=== PATIENT | male | born 1950 | race Two or more races ===

== ENCOUNTER 2020-05-02 02:53 | Inpatient (IN) | payer MEDICARE, OTHER ==
[2020-05-02 04:36] LABS: BASO % 0.2 % (0-2.0); HEMOGLOBIN 14.1 GM/dL (11.7-16.9); LYMPH % 14.4 % (8-40); MCH 29.9 pg (25.7-33.7); MCHC 33.5 g/dl (32.0-35.9); MEAN CELL VOLUME 89.4 fl (80-96); MEAN PLT VOLUME 10.4 fl (7.5-11.1); MONO % 4.3 % (3.8-10.2); NEUT % 81.1 % (42.8-82.8); PLATELET COUNT 117 K/MM3 (134-434); RDW 13.7 % (11.9-15.9); WHITE BLOOD COUNT 6.1 K/mm3 (4.0-10.0)
[2020-05-02] MEDS ORDERED: DEXAMETHASONE SOD PHOSPHATE 4 MG/1 ML VIAL IVPUSH ONE (04:51)
[2020-05-02 04:52] LABS: CHLORIDE 102 mmol/L (98-107); SODIUM 140 mmol/L (136-145)
[2020-05-02 04:54] LABS: CALCIUM 8.2 mg/dL (8.5-10.1); GLUCOSE,RANDOM 109 mg/dL (74-106)
[2020-05-02] MEDS ORDERED: DEXAMETHASONE SOD PHOSPHATE 10 MG/1 ML VIAL ONE (04:54)
[2020-05-02 04:55] LABS: ALBUMIN 3.1 g/dl (3.4-5.0); ANION GAP 8 MMOL/L (8-16); BLOOD UREA NITROGEN 15.1 mg/dL (7-18); CO2 30 mmol/L (21-32)
[2020-05-02 04:56] LABS: INR 1.33 (0.83-1.09)
[2020-05-02 04:57] LABS: BILIRUBIN,DIRECT 0.2 mg/dL (0.0-0.2)
[2020-05-02 04:59] LABS: ACTIVATED PTT 30.1 SECONDS (25.2-36.5); BILIRUBIN,TOTAL 0.6 mg/dL (0.2-1); CREATININE 1.1 mg/dL (0.55-1.3); LDH 890 U/L (87-246); SGOT/AST 94 U/L (15-37); SGPT/ALT 47 U/L (13-61); TOT PROT 7.2 g/dl (6.4-8.2)
[2020-05-02 05:00] LABS: ALK PHOS 61 U/L (45-117)
[2020-05-02] MEDS ORDERED: ENOXAPARIN NA (PORCINE) 40 MG/0.4 ML DISP.SYRIN SQ ONE (05:36)
[2020-05-02 05:42] LABS: EPI CELLS 9 /uL (0-25.1); HYALINE CASTS 0 /uL (0-3.1); PH,URINE 8.5 (5.0-8.0); URINE APPEARANCE CLEAR; URINE BACTERIA 9 /uL (0-1359); URINE BILIRUBIN NEGATIVE (NEGATIVE); URINE COLOR YELLOW; URINE GLUCOSE (UA) NEGATIVE (NEGATIVE); URINE KETONE TRACE (NEGATIVE); URINE LEUK ESTERASE NEGATIVE (NEGATIVE); URINE NITRITE NEGATIVE (NEGATIVE); URINE PROTEIN 2+ (NEGATIVE); URINE RBC 29 /uL (0-23.9); URINE UROBILINOGEN 0.2 mg/dL (0.2-1.0); URINE WBC 2 /uL (0-25.8)
[2020-05-02] MEDS ORDERED: ENOXAPARIN NA (PORCINE) 80 MG/0.8 ML DISP.SYRIN SQ ONE ×2 (05:43→11:26)
[2020-05-02 06:26] LABS: VENOUS BASE EXCESS 3.5 mmol/L (-2-2); VENOUS O2 SATURATION 32.2 % (70-80); VENOUS PCO2 44.9 mmHg (38-52); VENOUS PH 7.421 (7.310-7.410)
[2020-05-02] MEDS ORDERED: ACETAMINOPHEN 325 MG TABLET (FP) PO PRN (09:04)
[2020-05-02] MEDS: ZINC SULFATE 220 MG CAPSULE (FP) PO SCH (10:30)
[2020-05-02] MEDS: FAMOTIDINE 20 MG/50 ML IVPB 20 MG/50 ML MG IVPB SCH (10:35)
[2020-05-02] MEDS: ASCORBIC ACID 500 MG TABLET (FP) PO SCH (10:50)
[2020-05-02] MEDS ORDERED: ASCORBIC ACID 500 MG TABLET (FP) ONE (11:25)
[2020-05-02] MEDS ORDERED: ZINC SULFATE 220 MG CAPSULE (FP) ONE (11:25)
[2020-05-02] MEDS ORDERED: FAMOTIDINE 20 MG/50 ML IVPB 20 MG/50 ML MG IVPB ONE (11:26)
[2020-05-02] MEDS: ENOXAPARIN NA (PORCINE) 80 MG/0.8 ML DISP.SYRIN SQ SCH ×2 (11:42→21:24)
[2020-05-02] MEDS ORDERED: REMDESIVIR 200 MG in SODIUM CHLORIDE 210 ML IVPB ONE (15:30)
[2020-05-02] MEDS: ALBUTEROL SO4 HFA INHALER IH SCH ×2 (16:24→21:23)
[2020-05-02] MEDS: BUDESONIDE/FORMETEROL FUMARATE 160/4.5 mcg INHALER IH SCH (21:41)
[2020-05-03 01:24] VITALS: BMI 31.1
[2020-05-03] MEDS: ALBUTEROL SO4 HFA INHALER IH SCH ×4 (08:00→23:47)
[2020-05-03] MEDS: ZINC SULFATE 220 MG CAPSULE (FP) PO SCH (09:12)
[2020-05-03] MEDS: FAMOTIDINE 20 MG/50 ML IVPB 20 MG/50 ML MG IVPB SCH (09:12)
[2020-05-03] MEDS: ENOXAPARIN NA (PORCINE) 80 MG/0.8 ML DISP.SYRIN SQ SCH ×2 (09:12→22:10)
[2020-05-03] MEDS: DEXAMETHASONE SOD PHOSPHATE 4 MG/1 ML VIAL IVPUSH SCH (09:12)
[2020-05-03] MEDS: ASCORBIC ACID 500 MG TABLET (FP) PO SCH (09:12)
[2020-05-03 09:25] LABS: BASO % 0.1 % (0-2.0); HEMATOCRIT 39.1 % (35.4-49); HEMOGLOBIN 13.2 GM/dL (11.7-16.9); LYMPH % 13.7 % (8-40); MCH 29.9 pg (25.7-33.7); MCHC 33.7 g/dl (32.0-35.9); MEAN PLT VOLUME 9.6 fl (7.5-11.1); NEUT % 78.2 % (42.8-82.8); PLATELET COUNT 164 K/MM3 (134-434); RBC 4.39 M/mm3 (4.00-5.60); WHITE BLOOD COUNT 5.9 K/mm3 (4.0-10.0)
[2020-05-03] MEDS ORDERED: PT OWN MED DRAWER 7, Y5N ONE (09:30)
[2020-05-03 09:32] LABS: CALCIUM 8.3 mg/dL (8.5-10.1)
[2020-05-03 09:33] LABS: ALBUMIN 2.6 g/dl (3.4-5.0); BLOOD UREA NITROGEN 27.8 mg/dL (7-18)
[2020-05-03 09:36] LABS: CREATININE 1.1 mg/dL (0.55-1.3)
[2020-05-03 09:37] LABS: BILIRUBIN,TOTAL 0.8 mg/dL (0.2-1); TOT PROT 6.3 g/dl (6.4-8.2)
[2020-05-03] MEDS ORDERED: REMDESIVIR 100 MG in SODIUM CHLORIDE 230 ML IVPB SCH (10:00)
[2020-05-03] MEDS ORDERED: ENOXAPARIN NA (PORCINE) 80 MG/0.8 ML DISP.SYRIN SQ SCH (10:00)
[2020-05-03] MEDS: BUDESONIDE/FORMETEROL FUMARATE 160/4.5 mcg INHALER IH SCH ×2 (10:08→23:48)
[2020-05-03 10:49] LABS: PLATELET ESTIMATE ADEQUATE
[2020-05-03] MEDS: REMDESIVIR 100 MG in SODIUM CHLORIDE 230 ML IVPB SCH (15:08)
[2020-05-04] MEDS: ALBUTEROL SO4 HFA INHALER IH SCH ×3 (08:00→16:37)
[2020-05-04 09:02] LABS: BASO % 0.1 % (0-2.0); HEMATOCRIT 36.6 % (35.4-49); HEMOGLOBIN 12.4 GM/dL (11.7-16.9); LYMPH % 8.1 % (8-40); MCH 29.8 pg (25.7-33.7); MCHC 33.8 g/dl (32.0-35.9); MEAN PLT VOLUME 9.5 fl (7.5-11.1); MONO % 7.2 % (3.8-10.2); NEUT % 84.6 % (42.8-82.8); PLATELET COUNT 201 K/MM3 (134-434); RBC 4.16 M/mm3 (4.00-5.60); RDW 13.4 % (11.9-15.9)
[2020-05-04 09:27] LABS: ALBUMIN 2.3 g/dl (3.4-5.0); BLOOD UREA NITROGEN 29.5 mg/dL (7-18); CALCIUM 7.9 mg/dL (8.5-10.1)
[2020-05-04 09:30] LABS: CREATININE 1.1 mg/dL (0.55-1.3)
[2020-05-04 09:31] LABS: BILIRUBIN,TOTAL 0.3 mg/dL (0.2-1); MAGNESIUM 2.5 mg/dL (1.8-2.4); PHOSPHOROUS 2.8 mg/dL (2.5-4.9); TOT PROT 5.6 g/dl (6.4-8.2)
[2020-05-04] MEDS: DEXAMETHASONE SOD PHOSPHATE 4 MG/1 ML VIAL IVPUSH SCH (10:16)
[2020-05-04] MEDS: FAMOTIDINE 20 MG/50 ML IVPB 20 MG/50 ML MG IVPB SCH (10:16)
[2020-05-04] MEDS: ENOXAPARIN NA (PORCINE) 80 MG/0.8 ML DISP.SYRIN SQ SCH ×2 (10:16→22:18)
[2020-05-04] MEDS: ASCORBIC ACID 500 MG TABLET (FP) PO SCH (10:16)
[2020-05-04] MEDS: ZINC SULFATE 220 MG CAPSULE (FP) PO SCH (10:16)
[2020-05-04] MEDS: BUDESONIDE/FORMETEROL FUMARATE 160/4.5 mcg INHALER IH SCH ×2 (10:17→22:18)
[2020-05-04] MEDS: REMDESIVIR 100 MG in SODIUM CHLORIDE 230 ML IVPB SCH (16:38)
[2020-05-05] MEDS: DEXAMETHASONE SOD PHOSPHATE 4 MG/1 ML VIAL IVPUSH SCH (09:18)
[2020-05-05] MEDS: ASCORBIC ACID 500 MG TABLET (FP) PO SCH (09:18)
[2020-05-05] MEDS: ZINC SULFATE 220 MG CAPSULE (FP) PO SCH (09:18)
[2020-05-05] MEDS: FAMOTIDINE 20 MG/50 ML IVPB 20 MG/50 ML MG IVPB SCH (09:18)
[2020-05-05] MEDS: ALBUTEROL SO4 HFA INHALER IH SCH ×4 (09:18→21:26)
[2020-05-05] MEDS: ENOXAPARIN NA (PORCINE) 80 MG/0.8 ML DISP.SYRIN SQ SCH ×2 (09:19→21:24)
[2020-05-05] MEDS: BUDESONIDE/FORMETEROL FUMARATE 160/4.5 mcg INHALER IH SCH ×2 (09:21→23:02)
[2020-05-05 10:45] LABS: BASO % 0.4 % (0-2.0); HEMATOCRIT 37.8 % (35.4-49); HEMOGLOBIN 12.8 GM/dL (11.7-16.9); LYMPH % 7.6 % (8-40); MCH 29.9 pg (25.7-33.7); MCHC 33.7 g/dl (32.0-35.9); MEAN CELL VOLUME 88.8 fl (80-96); MEAN PLT VOLUME 9.4 fl (7.5-11.1); MONO % 7.1 % (3.8-10.2); NEUT % 84.9 % (42.8-82.8); PLATELET COUNT 251 K/MM3 (134-434); RBC 4.26 M/mm3 (4.00-5.60); RDW 13.6 % (11.9-15.9); WHITE BLOOD COUNT 9.8 K/mm3 (4.0-10.0)
[2020-05-05 12:05] LABS: ALBUMIN 2.4 g/dl (3.4-5.0); BLOOD UREA NITROGEN 33.6 mg/dL (7-18); CALCIUM 8.1 mg/dL (8.5-10.1); MAGNESIUM 2.2 mg/dL (1.8-2.4)
[2020-05-05 12:08] LABS: CREATININE 1.1 mg/dL (0.55-1.3); PHOSPHOROUS 3.4 mg/dL (2.5-4.9)
[2020-05-05 12:10] LABS: BILIRUBIN,TOTAL 0.4 mg/dL (0.2-1); TOT PROT 5.7 g/dl (6.4-8.2)
[2020-05-05 12:32] LABS: ANISOCYTOSIS 1+; MACROCYTOSIS 0; PLATELET ESTIMATE NORMAL
[2020-05-05] MEDS: REMDESIVIR 100 MG in SODIUM CHLORIDE 230 ML IVPB SCH (14:55)
[2020-05-05] MEDS ORDERED: PT OWN MED DRAWER 7, Y5N ONE (22:59)
[2020-05-06 09:50] LABS: BASO % 0.3 % (0-2.0); EOS % 1.2 % (0-4.5); HEMATOCRIT 41.9 % (35.4-49); HEMOGLOBIN 14.2 GM/dL (11.7-16.9); LYMPH % 12.5 % (8-40); MEAN CELL VOLUME 88.4 fl (80-96); MEAN PLT VOLUME 9.6 fl (7.5-11.1); MONO % 8.2 % (3.8-10.2); NEUT % 77.8 % (42.8-82.8); PLATELET COUNT 340 K/MM3 (134-434); RBC 4.74 M/mm3 (4.00-5.60); RDW 13.9 % (11.9-15.9); WHITE BLOOD COUNT 12.5 K/mm3 (4.0-10.0)
[2020-05-06 10:43] LABS: ANISOCYTOSIS 1+; MACROCYTOSIS 0; PLATELET ESTIMATE NORMAL
[2020-05-06 10:46] LABS: CALCIUM 8.3 mg/dL (8.5-10.1)
[2020-05-06 10:47] LABS: ALBUMIN 2.7 g/dl (3.4-5.0); BLOOD UREA NITROGEN 34.1 mg/dL (7-18); MAGNESIUM 2.4 mg/dL (1.8-2.4)
[2020-05-06 10:50] LABS: CREATININE 1.1 mg/dL (0.55-1.3); PHOSPHOROUS 3.7 mg/dL (2.5-4.9)
[2020-05-06 10:51] LABS: BILIRUBIN,TOTAL 0.6 mg/dL (0.2-1); TOT PROT 6.4 g/dl (6.4-8.2)
[2020-05-06] MEDS: FAMOTIDINE 20 MG/50 ML IVPB 20 MG/50 ML MG IVPB SCH (11:01)
[2020-05-06] MEDS: ENOXAPARIN NA (PORCINE) 80 MG/0.8 ML DISP.SYRIN SQ SCH ×2 (11:01→21:56)
[2020-05-06] MEDS: DEXAMETHASONE SOD PHOSPHATE 4 MG/1 ML VIAL IVPUSH SCH (11:02)
[2020-05-06] MEDS: ZINC SULFATE 220 MG CAPSULE (FP) PO SCH (11:02)
[2020-05-06] MEDS: ASCORBIC ACID 500 MG TABLET (FP) PO SCH (11:02)
[2020-05-06] MEDS: BUDESONIDE/FORMETEROL FUMARATE 160/4.5 mcg INHALER IH SCH ×2 (11:02→21:58)
[2020-05-06] MEDS: ALBUTEROL SO4 HFA INHALER IH SCH ×4 (11:02→21:58)
[2020-05-06] MEDS: REMDESIVIR 100 MG in SODIUM CHLORIDE 230 ML IVPB SCH (15:27)
[2020-05-07] MEDS: ALBUTEROL SO4 HFA INHALER IH SCH ×3 (08:00→22:07)
[2020-05-07] MEDS: BUDESONIDE/FORMETEROL FUMARATE 160/4.5 mcg INHALER IH SCH ×2 (10:00→22:07)
[2020-05-07 10:10] LABS: BASO % 0.5 % (0-2.0); EOS % 0.1 % (0-4.5); HEMOGLOBIN 14.1 GM/dL (11.7-16.9); LYMPH % 14.5 % (8-40); MCH 29.9 pg (25.7-33.7); MCHC 33.5 g/dl (32.0-35.9); MEAN CELL VOLUME 89.2 fl (80-96); MEAN PLT VOLUME 9.7 fl (7.5-11.1); MONO % 8.1 % (3.8-10.2); NEUT % 76.8 % (42.8-82.8); PLATELET COUNT 373 K/MM3 (134-434); RBC 4.71 M/mm3 (4.00-5.60); RDW 13.8 % (11.9-15.9); WHITE BLOOD COUNT 12.1 K/mm3 (4.0-10.0)
[2020-05-07 10:30] LABS: BLOOD UREA NITROGEN 34.1 mg/dL (7-18); CALCIUM 7.7 mg/dL (8.5-10.1); MAGNESIUM 2.3 mg/dL (1.8-2.4)
[2020-05-07 10:31] LABS: ALBUMIN 2.7 g/dl (3.4-5.0)
[2020-05-07 10:33] LABS: CREATININE 1.1 mg/dL (0.55-1.3); PHOSPHOROUS 3.2 mg/dL (2.5-4.9)
[2020-05-07 10:35] LABS: BILIRUBIN,TOTAL 0.5 mg/dL (0.2-1); TOT PROT 6.3 g/dl (6.4-8.2)
[2020-05-07] MEDS: ENOXAPARIN NA (PORCINE) 80 MG/0.8 ML DISP.SYRIN SQ SCH ×2 (11:15→22:03)
[2020-05-07] MEDS: FAMOTIDINE 20 MG/50 ML IVPB 20 MG/50 ML MG IVPB SCH (11:16)
[2020-05-07] MEDS: DEXAMETHASONE SOD PHOSPHATE 4 MG/1 ML VIAL IVPUSH SCH (11:17)
[2020-05-07] MEDS: ASCORBIC ACID 500 MG TABLET (FP) PO SCH (11:18)
[2020-05-07] MEDS: ZINC SULFATE 220 MG CAPSULE (FP) PO SCH (11:18)
[2020-05-07 13:10] LABS: ANISOCYTOSIS 1+; MACROCYTOSIS 0; PLATELET ESTIMATE NORMAL
[2020-05-08 09:25] LABS: BASO % 0.5 % (0-2.0); HEMOGLOBIN 14.2 GM/dL (11.7-16.9)
[2020-05-08 09:29] LABS: ALBUMIN 2.8 g/dl (3.4-5.0); CALCIUM 8.1 mg/dL (8.5-10.1); HEMATOCRIT 43.2 % (35.4-49); LYMPH % 14.9 % (8-40); MCH 29.5 pg (25.7-33.7); MEAN CELL VOLUME 89.3 fl (80-96); MEAN PLT VOLUME 9.5 fl (7.5-11.1); MONO % 9.2 % (3.8-10.2); NEUT % 73.4 % (42.8-82.8); PLATELET COUNT 380 K/MM3 (134-434); RBC 4.83 M/mm3 (4.00-5.60); RDW 14.1 % (11.9-15.9); WHITE BLOOD COUNT 12.2 K/mm3 (4.0-10.0)
[2020-05-08 09:30] LABS: BLOOD UREA NITROGEN 33.7 mg/dL (7-18); MAGNESIUM 2.5 mg/dL (1.8-2.4)
[2020-05-08 09:32] LABS: CREATININE 1.1 mg/dL (0.55-1.3); PHOSPHOROUS 4.1 mg/dL (2.5-4.9)
[2020-05-08 09:34] LABS: BILIRUBIN,TOTAL 0.5 mg/dL (0.2-1); TOT PROT 6.2 g/dl (6.4-8.2)
[2020-05-08] MEDS: ASCORBIC ACID 500 MG TABLET (FP) PO SCH (10:57)
[2020-05-08] MEDS: ZINC SULFATE 220 MG CAPSULE (FP) PO SCH (10:57)
[2020-05-08] MEDS: FAMOTIDINE 20 MG/50 ML IVPB 20 MG/50 ML MG IVPB SCH (10:57)
[2020-05-08] MEDS: DEXAMETHASONE SOD PHOSPHATE 4 MG/1 ML VIAL IVPUSH SCH (10:58)
[2020-05-08] MEDS: ENOXAPARIN NA (PORCINE) 80 MG/0.8 ML DISP.SYRIN SQ SCH (10:59)
[2020-05-08] MEDS: BUDESONIDE/FORMETEROL FUMARATE 160/4.5 mcg INHALER IH SCH (11:07)
[2020-05-08] MEDS: ALBUTEROL SO4 HFA INHALER IH SCH ×2 (11:07→12:01)
[2020-05-08 12:32] LABS: ANISOCYTOSIS 0; MACROCYTOSIS 1+; PLATELET ESTIMATE NORMAL
[2020-05-08] MEDS ORDERED: SODIUM ZIRCONIUM CYCLOSILICATE (LOKELMA) 5 GM PACKET PO ONE (14:17)
[2020-05-08 15:12] VITALS: BP 132/81; PULSE 92; TEMP 98
[2020-05-08] MEDS ORDERED: PT OWN MED DRAWER 7, Y5N ONE (15:18)
[2020-05-09] MEDS ORDERED: ENOXAPARIN NA (PORCINE) 40 MG/0.4 ML DISP.SYRIN SQ SCH (10:00)
== END 2020-05-08 16:39 | disposition home or self-care (01) | DRG 137 ==
LOC: JER 02:53 → JERBED 05:05 → J6S 18:56
PROVIDERS: ADMIT Internal Medicine; ATTEND Student in an Organized Health Care Education/Training Program
PROC: XW033E5 Introduction of Remdesivir Anti-infective into Peripheral Vein, Percutaneous Approach, New Technology Group 5 (ICD-10-PCS; principal; 2020-05-02)
DX: U07.1 COVID-19 (principal); J12.82 Pneumonia due to coronavirus disease 2019; J96.01 Acute respiratory failure with hypoxia; R31.29 Other microscopic hematuria; R74.01 Elevation of levels of liver transaminase levels
CPT/HCPCS: 36415; 71045-TC-FY; 80053; 81003; 82248; 82550; 82553; 82728; 82803; 83605; 83615; 83735; 83880; 84100; 84484; 85025; 85379; 85610; 85730; 86140; 86769; 87040; 87086; 87804; 93005; 93010; 94761; 97116-GP; 97161-GP; 99285-25; C9399; C9803; U0003

== ENCOUNTER 2020-05-24 10:07 | Emergency (ER) | payer MEDICARE, OTHER ==
[2020-05-24 10:22] VITALS: BP 137/87; PULSE 82; TEMP 98.6; BMI 24.1
[2020-05-24] MEDS ORDERED: DIPHTH,PERTUSS(ACELL),TET 0.5 ML DISP.SYRIN IM ONE ×2 (11:53→11:54)
== END 2020-05-24 12:52 | disposition home or self-care (01) ==
LOC: JERFT 10:07
PROC: 0HQGXZZ Repair Left Hand Skin, External Approach (ICD-10-PCS; principal; 2020-05-24)
PROC: 2W3JX1Z Immobilization of Right Finger using Splint (ICD-10-PCS; 2020-05-24)
PROC: 3E0234Z Introduction of Serum, Toxoid and Vaccine into Muscle, Percutaneous Approach (ICD-10-PCS; 2020-05-24)
DX: S62.611A Displaced fracture of proximal phalanx of left index finger, initial encounter for closed fracture (principal); S61.211A Laceration without foreign body of left index finger without damage to nail, initial encounter
CPT/HCPCS: 73130-TC-LT-FY; 73140-TC-LT-FY; 90715; 99285-25